=== PATIENT | male | born 1935 | race Caucasian/White ===

== ENCOUNTER 2018-05-25 01:17 | Emergency (ER) | payer OTHER ==
[2018-05-25 01:22] VITALS: BP 164/65
== END 2018-05-25 02:43 | disposition left against medical advice (07) ==
DX: Z53.21 Procedure and treatment not carried out due to patient leaving prior to being seen by health care provider (principal)

== ENCOUNTER 2018-08-09 04:14 | Observation (INO) | payer OTHER ==
[2018-08-09] MEDS ORDERED: NS 1,000 ML IV ONE (04:21)
[2018-08-09] MEDS ORDERED: ONDANSETRON 4 MG/2 ML VIAL IVP ONE (04:21)
[2018-08-09] MEDS ORDERED: HYDROmorphONE/DILAUDID 2 MG/ML INJ IVP ONE (04:21)
--- NOTE | 2018-08-09 04:21 | EDPHY ---
H & P Stated Complaint: LUQ abd pain worst when laying down Time Seen by Provider: 08/09/18 04:21 HPI/ROS: HPI CHIEF COMPLAINT: Left upper quadrant abdominal pain HISTORY OF PRESENT ILLNESS: 82-year-old male, states he is otherwise healthy with no significant medical history does not take any daily medications, presents emergency room left upper quadrant abdominal pain. Patient reports that he has had this pain for close to a year. However this evening it has gotten worse. Describes is sharp stabbing pain left upper quadrant. Nonradiating. Patient denies any fever. Denies any chest pain or shortness of breath, denies the pain radiating up to his chest. Denies the pain radiating to his back. Pain stays locally in the left upper quadrant. It is also worse when he lays flat. No pleuritic pain. No shortness of breath. Past Medical History: Denies significant medical history Past Surgical History: Denies significant surgical history Social History: Denies drugs alcohol tobacco. Accompanied by his at bedside. Family History: Noncontributory ROS REVIEW OF SYSTEMS: 10 Systems were reviewed and negative with the exception of the elements mentioned in the history of present illness. Exam Constitutional triage nursing summary reviewed, vital signs reviewed, awake/ alert. Eyes normal conjunctivae and sclera, EOMI, PERRLA. HENT normal inspection, atraumatic, moist mucus membranes, no epistaxis, neck supple/ no meningismus, no raccoon eyes. Respiratory clear to auscultation bilaterally, normal breath sounds, no respiratory distress, no wheezing. Cardiovascular rate normal, regular rhythm, no murmur, no edema, distal pulses normal. Gastrointestinal mild tender palpation left upper quadrant, no rebound, no guarding, normal bowel sounds, no distension, no pulsatile mass. Genitourinary no CVA tenderness. Musculoskeletal no midline vertebral tenderness, full range of motion, no calf swelling, no tenderness of extremities, no meningismus, good pulses, neurovascularly intact. Skin pink, warm, & dry, no rash, skin atraumatic. Neurologic awake, alert and oriented x 3, AAOx3, moves all 4 extremities equally, motor intact, sensory intact, CN II-XII intact, normal cerebellar, normal vision, normal speech. Psychiatric normal mood/affect. Heme/Lymph/Immune no lymphadenopathy. Differential diagnosis includes but is not limited to and in no particular order : Bowel obstruction, appendicitis, gallbladder disease, diverticulitis, colitis , enteritis, perforated viscus, gastritis, GERD, esophagitis, urinary tract infection, pyelonephritis, kidney stones Medical Decision Making: Plan for this patient IV establishment IV fluid bolus , IV Dilaudid 0.5 mg for pain control, IV Zofran 4 mg for nausea, abdominal labs , CT scan abdomen pelvis with IV contrast for left upper quadrant abdominal pain. No pulsatile mass on exam. Re-evaluation: EKG interpretation by me on record in [employer] system. Impression time of EKG 4:53 a.m. Sinus rhythm rate of 65. No signs of acute ischemia. No prolonged intervals no ST elevation or ST depression. 0618: Patient's EKG is nonischemic. Patient's troponin is noted to be positive at 0.11. Given this pain in the left upper quadrant the positive troponin with a nonischemic EKG plan will be for admission to the hospital for further evaluation. CT scan abdomen pelvis with IV contrast shows constipation but no acute inflammatory process. Chest x-ray shows cardiomegaly but no evidence of failure. This possible left upper quadrant is gas pain or constipation. However in the setting of a positive troponin will admit him for further evaluation of this. 0627AM: Spoke with Dr. Padilla agrees to admit. Source: Patient - Personal History Current Tetanus/Diphtheria Vaccine: Yes Current Tetanus Diphtheria and Acellular Pertussis (TDAP): Yes - Medical/Surgical History Hx Asthma: Yes Hx Chronic Respiratory Disease: No Hx Diabetes: No Hx Cardiac Disease: No Hx Renal Disease: No Hx Cirrhosis: No Hx Alcoholism: No Hx HIV/AIDS: No Hx Splenectomy or Spleen Trauma: No Other PMH: denies - Social History Smoking Status: Never smoked Constitutional: Initial Vital Signs Temperature (C) 36.8 C 08/09/18 04:15 Heart Rate 82 08/09/18 04:15 Respiratory Rate 16 08/09/18 04:15 Blood Pressure 164/74 H 08/09/18 04:15 O2 Sat (%) 97 08/09/18 04:15 O2 Delivery Mode Room Air Allergies/Adverse Reactions: Penicillins Allergy (Verified 08/09/18 07:58) Rash Home Medications: Medication Instructions Recorded Omeprazole 20 mg PO DAILY 08/09/18 Medical Decision Making - Diagnostics Imaging Results: Imaging Impressions Abdomen CT 08/09/18 04:21 Impression: 1. No acute abnormality within the abdomen or pelvis. 2. Constipation. 3. 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 The study was performed as an emergency on-call case and discussed by telephone with Dr. David Valle at 5:45 AM hrs. The final interpretation is concordant with the original communication. - Data Points Laboratory Results: Laboratory Results 08/09/18 04:30 08/09/18 04:30 Medications Given: Discontinued Medications Enoxaparin Sodium (Lovenox) 40 mg SC DAILY ANGELLA Stop: 02/05/19 08:59 Last Admin: 08/09/18 16:24 Dose: Not Given Hydromorphone HCl (Dilaudid) 0.5 mg IVP EDNOW ONE Stop: 08/09/18 04:22 Last Admin: 08/09/18 05:16 Dose: Not Given Sodium Chloride (Ns) 1,000 mls @ 0 mls/hr IV EDNOW ONE; Wide Open PRN Reason: Protocol Stop: 08/09/18 04:22 Last Admin: 08/09/18 04:47 Dose: 1,000 mls Sodium Chloride (Ns) 500 mls @ 1,500 mls/hr IV ONCE ONE Stop: 08/09/18 13:42 Last Admin: 08/09/18 13:34 Dose: 500 mls Ondansetron HCl (Zofran) 4 mg IVP EDNOW ONE Stop: 08/09/18 04:22 Last Admin: 08/09/18 05:16 Dose: Not Given Point of Care Test Results: Chemistry 08/09/18 05:14 POC Troponin I 0.11 ng/mL H ng/mL (0.00-0.08) Departure - Departure Disposition: [facility] Inpatient Acute Clinical Impression: Elevated troponin Constipation Qualifiers: Constipation type: other constipation type Qualified Code(s): K59.09 - Other constipation Condition: Fair
[2018-08-09 04:43] LABS: PLATELET COUNT 199 10^3/uL (150-400)
[2018-08-09] MEDS ORDERED: IOPAMIDOL (ISOVUE-300) 100 ML BTL ONE (05:09)
[2018-08-09] MEDS ORDERED: ONDANSETRON DISINTEGRATING 4 MG TAB PO PRN (06:26)
[2018-08-09] MEDS ORDERED: ACETAMINOPHEN 325 MG TAB PO PRN (06:26)
[2018-08-09] MEDS ORDERED: ONDANSETRON 4 MG/2 ML VIAL IVP PRN (06:26)
[2018-08-09 06:35] LABS: INR 1.07 (0.83-1.16); PROTIME(PATIENT) 14.1 SEC (12.0-15.0)
--- NOTE | 2018-08-09 07:09 | PDGENHP ---
History and Physical - Chief Complaint LUQ pain - History of Present Illness 82 yo M w/ no PMHx presents with LUQ pain. Patient tells me he has had mild, on and off LUQ pain for several months. Last night the pain was much more severe than usual so he came to the ED. He tells me the pain is worse when he lies flat. He denies any association to exertion. There is a pleuritic component to the pain. He denies SOB, palpitation, orthopnea, leg swelling, and any other associated symptoms. He denies recent illnesses. In the ED a CT of the abdomen was unremarkable. A troponin was checked, which was elevated at 0.1. ECG shows no signs of acute ischemia. The patient denies any cardiac history. Case was discussed with ED physician Dr. Valle; records reviewed in EMR. History Information - Allergies/Home Medication List Allergies/Adverse Reactions: Penicillins Allergy (Verified 08/09/18 04:18) Home Medications: NK [No Known Home Meds] 08/09/18 [Last Taken Unknown] I have personally reviewed and updated: family history, medical history - Past Medical History no pertinent PMH - Surgical History Additional surgical history: TURP - Family History Additional family history: Denies family hx of cardiac disease - Social History Smoking Status: Never smoked Review of Systems Review of Systems: ROS: 10pt was reviewed & negative except for what was stated in HPI & below Physical Exam Physical Exam: Temp Pulse Resp BP Pulse Ox 36.8 C 63 18 170/79 H 98 08/09/18 04:15 08/09/18 06:16 08/09/18 06:16 08/09/18 06:16 08/09/18 06:16 Constitutional: no apparent distress, appears nourished Eyes: PERRL, EOMI Ears, Nose, Mouth, Throat: moist mucous membranes, no oral mucosal ulcers Cardiovascular: regular rate and rhythym, no murmur, rub, or gallop Respiratory: no respiratory distress, no rales or rhonchi Gastrointestinal: normoactive bowel sounds, tenderness (Mild LUQ TTP) Skin: warm, normal color Musculoskeletal: full muscle strength, no muscle tenderness Neurologic: AAOx3, CN II-XII Intact Psychiatric: interacting appropriately, not anxious Lab Data & Imaging Review 08/09/18 04:30 08/09/18 04:30 WBC 5.25 10^3/uL (3.80-9.50) 08/09/18 04:30 RBC 4.19 10^6/uL (4.40-6.38) L 08/09/18 04:30 Hgb 13.7 g/dL (13.7-17.5) 08/09/18 04:30 Hct 40.1 % (40.0-51.0) 08/09/18 04:30 MCV 95.7 fL (81.5-99.8) 08/09/18 04:30 MCH 32.7 pg (27.9-34.1) 08/09/18 04:30 MCHC 34.2 g/dL (32.4-36.7) 08/09/18 04:30 RDW 13.0 % (11.5-15.2) 08/09/18 04:30 Plt Count 199 10^3/uL (150-400) 08/09/18 04:30 MPV 9.6 fL (8.7-11.7) 08/09/18 04:30 Neut % (Auto) 56.1 % (39.3-74.2) 08/09/18 04:30 Lymph % (Auto) 33.0 % (15.0-45.0) 08/09/18 04:30 Assumption % (Auto) 7.2 % (4.5-13.0) 08/09/18 04:30 Eos % (Auto) 2.9 % (0.6-7.6) 08/09/18 04:30 Baso % (Auto) 0.6 % (0.3-1.7) 08/09/18 04:30 Nucleat RBC Rel Count 0.0 % (0.0-0.2) 08/09/18 04:30 Absolute Neuts (auto) 2.95 10^3/uL (1.70-6.50) 08/09/18 04:30 Absolute Lymphs (auto) 1.73 10^3/uL (1.00-3.00) 08/09/18 04:30 Absolute Monos (auto) 0.38 10^3/uL (0.30-0.80) 08/09/18 04:30 Absolute Eos (auto) 0.15 10^3/uL (0.03-0.40) 08/09/18 04:30 Absolute Basos (auto) 0.03 10^3/uL (0.02-0.10) 08/09/18 04:30 Absolute Nucleated RBC 0.00 10^3/uL (0-0.01) 08/09/18 04:30 Immature Gran % 0.2 % (0.0-1.1) 08/09/18 04:30 Immature Gran # 0.01 10^3/uL (0.00-0.10) 08/09/18 04:30 PT 14.1 SEC (12.0-15.0) 08/09/18 04:30 INR 1.07 (0.83-1.16) 08/09/18 04:30 APTT 30.0 SEC (23.0-38.0) 08/09/18 04:30 Sodium 142 mEq/L (135-145) 08/09/18 04:30 Potassium 4.0 mEq/L (3.3-5.0) 08/09/18 04:30 Chloride 105 mEq/L (97-110) 08/09/18 04:30 Carbon Dioxide 27 mEq/l (22-31) 08/09/18 04:30 Anion Gap 10 mEq/L (8-16) 08/09/18 04:30 BUN 15 mg/dL (7-23) 08/09/18 04:30 Creatinine 0.8 mg/dL (0.7-1.3) 08/09/18 04:30 Estimated GFR > 60 08/09/18 04:30 Glucose 115 mg/dL (70-100) H 08/09/18 04:30 Calcium 9.6 mg/dL (8.5-10.4) 08/09/18 04:30 Total Bilirubin 0.6 mg/dL (0.1-1.4) 08/09/18 04:30 Conjugated Bilirubin 0.1 mg/dL (0.0-0.5) 08/09/18 04:30 Unconjugated Bilirubin 0.5 mg/dL (0.0-1.1) 08/09/18 04:30 AST 29 IU/L (17-59) 08/09/18 04:30 ALT 32 IU/L (21-72) 08/09/18 04:30 Alkaline Phosphatase 52 IU/L (38-126) 08/09/18 04:30 POC Troponin I 0.11 ng/mL (0.00-0.08) H 08/09/18 05:14 Total Protein 6.4 g/dL (6.3-8.2) 08/09/18 04:30 Albumin 3.8 g/dL (3.5-5.0) 08/09/18 04:30 Lipase 106 IU/L (23-300) 08/09/18 04:30 Imaging Review: No Acute Disease constipation ASVD SMA at origin large bladder macdade 5:45 Visualized and Interpreted EKG results: Yes EKG Interpretation: Positive for: normal sinsus rhythm Assessment & Plan Assessment: 82 yo M presents with LUQ pain and found to have elevated troponin. Plan: 1. LUQ pain - Unclear etiology; noting elevated troponin could be a sign of angina but this seems less likely noting that pain has been almost constantly present for months and has no relation to exertion. CT A/P did not show acute findings, which suggests pain could be MSK in nature. - Cardiac work-up as below - Conservative pain control with APAP for now 2. Elevated troponin - Troponin 0.11 on admission with presentation of LUQ pain. ECG (personally interpreted) without signs if ischemia. Patient denies any personal history of cardiac disease. BP elevated during my evaluation, which may be contributing. - Monitor on telemetry, trend cardia enzymes (next at 1200) - Obtain TTE to look for wall motion abnormalities - Will ask cardiology to evaluate and consider utility of further testing Diet - Regular Code - Full Ppx - LMWH Dispo - Admit under observation status
--- NOTE | 2018-08-09 08:55 | PDCARCONS ---
Cardiology Consult Reason for Consult: Elevated troponin Chief Complaint: Left upper quadrant abdominal pains Requesting Physician: Hospitalist Crew History of Present Illness: Patient is an 82 y/o male with unremarkable past medical/cardiovascular history (no HTN, HLP, DM, or CAD), who presented to the ER at [facility] with complaints of left upper quadrant abdominal pains. Symptoms, according to the patient, have been present for the past six months. When asked why present to the ER at 0400 in the morning, he stated that he couldn't get back to sleep, and the pains that he was noting were more severe (4/10). Typical pain rate is 2/10. No radiation into the shoulder, neck, or jaw. No mauri "chest pains" have been noted. No PND or orthopnea. No dizziness or lightheadedness, no fevers or chills. A back injury while moving a washing machine did radiate around from the back to the ribs, but that is improved. ECG in the ER was normal (no dynamic ST/T wave changes with elevation or depression to the ST segment). CXR was grossly normal. CT of chest and abdomen was also performed with moderate atherosclerotic disease to the aorta (distally to the bifurcation) as well as to coronary arteries (RCA in particular). Patient walks five times per week with between 3-5 miles per day. No issues with chest pains or pressure noted with this activity. Stairs at home are tolerated without symptoms. Patient did report an angiogram (likely over 20 years ago) after chest pains were noted. No CAD was noted (according to the patient). Patient with smoking history (about 15-20 pack year history) over 50 years ago. Family history of "long life". At present, the patient does have an awareness of discomfort to the left upper quadrant, but would not call it "pain". Remainder of the review of systems was unremarkable less: mild "tremors" were noted with the event this morning. History Information - Allergies/Home Medication List Allergies/Adverse Reactions: Penicillins Allergy (Verified 08/09/18 07:58) Rash Home Medications: Omeprazole 20 mg PO DAILY 08/09/18 [Last Taken 08/08/18] I have personally reviewed and updated: family history, medical history, social history, surgical history Past Medical History: - Past Medical History no pertinent PMH - Surgical History Reports: no pertinent surgical hx - Family History Positive for: non-pertinent - Social History Smoking Status: Former smoker Alcohol Use: None Drug Use: None Cardiac History - Cardiac History Cardiac Risk Factors: age > 65, male Timing/Duration: Weeks Severity: moderate Severity Scale: 4 Location: other (Left upper quadrant) Activities at Onset: none Modifying Factors: improves with: other (sitting up and moving around) Associated Symptoms: denies symptoms SHWETHA Risk Evaluation age greater or equal to 65: yes greater or equal to 3 CAD risk factors: no known CAD(stenosis greater or eqaul to 50%): no ASA use in past 7 days: no severe angina(greater or equal to 2 episodes in 24hrs): no EKG ST changes greater or equal to 0.5mm: no positive cardiac marker: yes Total Score: 2 SHWETHA Score: 8.3% risk Physical Exam Physical Exam: Temp Pulse Resp BP Pulse Ox 36.8 C 58 L 16 167/80 H 98 08/09/18 07:55 08/09/18 07:55 08/09/18 07:55 08/09/18 07:55 08/09/18 07:55 Constitutional: no apparent distress, appears nourished, not in pain Eyes: PERRL, EOMI Ears, Nose, Mouth, Throat: moist mucous membranes, hearing normal, ears appear normal Cardiovascular: regular rate and rhythym, no murmur, rub, or gallop, pulses symmetric bilaterally, No JVD, No edema Peripheral Pulses: 2+: dorsalis-pedis (R), dorsalis-pedis (L) Respiratory: no respiratory distress, no rales or rhonchi, clear to auscultation Gastrointestinal: normoactive bowel sounds, soft, non-tender abdomen Skin: warm, normal color Musculoskeletal: full muscle strength, no muscle tenderness, normal joint ROM Neurologic: AAOx3, sensation intact bilaterally, CN II-XII Intact Psychiatric: interacting appropriately, not anxious, not encephalopathic Lab and Imaging 08/09/18 04:30 08/09/18 04:30 WBC 5.25 10^3/uL (3.80-9.50) 08/09/18 04:30 RBC 4.19 10^6/uL (4.40-6.38) L 08/09/18 04:30 Hgb 13.7 g/dL (13.7-17.5) 08/09/18 04:30 Hct 40.1 % (40.0-51.0) 08/09/18 04:30 MCV 95.7 fL (81.5-99.8) 08/09/18 04:30 MCH 32.7 pg (27.9-34.1) 08/09/18 04:30 MCHC 34.2 g/dL (32.4-36.7) 08/09/18 04:30 RDW 13.0 % (11.5-15.2) 08/09/18 04:30 Plt Count 199 10^3/uL (150-400) 08/09/18 04:30 MPV 9.6 fL (8.7-11.7) 08/09/18 04:30 Neut % (Auto) 56.1 % (39.3-74.2) 08/09/18 04:30 Lymph % (Auto) 33.0 % (15.0-45.0) 08/09/18 04:30 Mcclain % (Auto) 7.2 % (4.5-13.0) 08/09/18 04:30 Eos % (Auto) 2.9 % (0.6-7.6) 08/09/18 04:30 Baso % (Auto) 0.6 % (0.3-1.7) 08/09/18 04:30 Nucleat RBC Rel Count 0.0 % (0.0-0.2) 08/09/18 04:30 Absolute Neuts (auto) 2.95 10^3/uL (1.70-6.50) 08/09/18 04:30 Absolute Lymphs (auto) 1.73 10^3/uL (1.00-3.00) 08/09/18 04:30 Absolute Monos (auto) 0.38 10^3/uL (0.30-0.80) 08/09/18 04:30 Absolute Eos (auto) 0.15 10^3/uL (0.03-0.40) 08/09/18 04:30 Absolute Basos (auto) 0.03 10^3/uL (0.02-0.10) 08/09/18 04:30 Absolute Nucleated RBC 0.00 10^3/uL (0-0.01) 08/09/18 04:30 Immature Gran % 0.2 % (0.0-1.1) 08/09/18 04:30 Immature Gran # 0.01 10^3/uL (0.00-0.10) 08/09/18 04:30 PT 14.1 SEC (12.0-15.0) 08/09/18 04:30 INR 1.07 (0.83-1.16) 08/09/18 04:30 APTT 30.0 SEC (23.0-38.0) 08/09/18 04:30 Sodium 142 mEq/L (135-145) 08/09/18 04:30 Potassium 4.0 mEq/L (3.3-5.0) 08/09/18 04:30 Chloride 105 mEq/L (97-110) 08/09/18 04:30 Carbon Dioxide 27 mEq/l (22-31) 08/09/18 04:30 Anion Gap 10 mEq/L (8-16) 08/09/18 04:30 BUN 15 mg/dL (7-23) 08/09/18 04:30 Creatinine 0.8 mg/dL (0.7-1.3) 08/09/18 04:30 Estimated GFR > 60 08/09/18 04:30 Glucose 115 mg/dL (70-100) H 08/09/18 04:30 Calcium 9.6 mg/dL (8.5-10.4) 08/09/18 04:30 Total Bilirubin 0.6 mg/dL (0.1-1.4) 08/09/18 04:30 Conjugated Bilirubin 0.1 mg/dL (0.0-0.5) 08/09/18 04:30 Unconjugated Bilirubin 0.5 mg/dL (0.0-1.1) 08/09/18 04:30 AST 29 IU/L (17-59) 08/09/18 04:30 ALT 32 IU/L (21-72) 08/09/18 04:30 Alkaline Phosphatase 52 IU/L (38-126) 08/09/18 04:30 POC Troponin I 0.11 ng/mL (0.00-0.08) H 08/09/18 05:14 Total Protein 6.4 g/dL (6.3-8.2) 08/09/18 04:30 Albumin 3.8 g/dL (3.5-5.0) 08/09/18 04:30 Lipase 106 IU/L (23-300) 08/09/18 04:30 Visualized and Interpreted Chest x-ray results: Yes Chest X-ray Interpretation: no infiltrate, normal, normal heart size Visualized and Interpreted EKG results: Yes EKG Interpretation: Positive for: normal sinsus rhythm Telemetry: Normal sinus rhythm A/P Assessment: Patient is an 82 y/o male with no prior cardiac history on no medications, who presents to [facility] ER with complaints of left upper quadrant pains. Symptoms have been noted for several months, but early this morning, more severe (02/18). In the ER, ECG was performed (unremarkable), CXR (normal), and CT scan (no gross pathology, but there is a moderate degree of PVD (aorta) and some CAD noted ( likely to the RCA). At present, the patient has "presence" of discomfort to the left upper quadrant. was at bedside this morning. Plan: (1) Would start the patient on low dose ASA (81 mg per day) (2) A second troponin should be performed - if further elevation is noted, would consider echocardiography for further assessment of systolic function and wall motion (this may have been ordered already) - if normalization has been noted, would consider discharge to home for outpatient work up with (3) Patient is a higher CV risk based on age and sex alone and stress testing not likely to assist with risk stratification - if abnormal, not a surprise (>>10% ASCVD risk) - if normal, we still have some degree of concern given ASCVD score (>>10%) (4) Medical therapy should be started to better treat the blood pressure elevation that has been noted - the patient claims that the blood pressures at home are typically 120's systolic - we do not have a cholesterol assessment, and prior to beginning therapy on statins, would recommend a baseline LFT/FLP - the patient has CAD and PVD from the CT scan, but this testing does not assist with determination of the severity of stenosis (5) The patient is typically followed by [facility] in the outpatient setting (6) There is the option for angiography, but (a) the patient is on NO medical therapy, (b) currently, the patient has no active symptoms, and (c) ECG without dynamic ST/T wave changes. Thank you for this consultation.
[2018-08-09] MEDS ORDERED: ENOXAPARIN 40 MG/0.4 ML SYR SC SCH (09:00)
--- NOTE | 2018-08-09 13:19 | ECHO ---
[email or web address] [address] [address] Main: [phone] Fax: [email or web address] Echocardiogram Name: ELAINE WASHINGTON MR#: [id number] Study Date: 08/09/2018 Study Time: 12:09 PM Date of : 1935 Age: 82 year(s) Height: 170.2 cm (67 in.) Weight: 70.31 kg (155 lb.) BSA: 1.81 m2 Gender: Male Examination: Echo Indication: Elevated trop Image Quality: Adequate Contrast: Requested by: Pineda Tejeda BP: 126 mmHg/66 mmHg Heart Rate: Rhythm: Indication: Elevated trop Procedure Staff Car Examiner: Chiquis Rodriguez RDCS Reading Physician: Sara Aguirre MD Requesting Provider: Demi Gupta Conclusions: Normal size left ventricle. Mild concentric LV hypertrophy. Normal global systolic LV function. The ejection fraction is visually estimated to be 65 %. No regional wall motion abnormality. Mildly dilated right ventricle. Normal RV function. The left atrium is normal in size. The right atrium is mildly dilated. Mild mitral valve regurgitation is present. Mild tricuspid regurgitation is present. The pulmonary artery pressure is mildly increased. No pericardial effusion. There is no previous echocardiogram for comparison. Measurements: Chambers Valvular Assessment AV/MV Valvular Assessment TV/PV Normal Normal Normal Name Value Range Name Value Range Name Value Range Ao Mercedes (2D): 3.2 cm (1.4 cm-2.6 AV Vmax: 1.25 m/s (1 m/s-1.7 TR Vmax: 2.95 mm/s ( - ) cm) m/s) TR PGmax: 35 mmHg ( - ) IVSd (2D): 1.2 cm (0.6 cm-1.1 AV maxP mmHg ( - ) syst. PAP: 40 mmHg ( - ) cm) AV meanP mmHg ( - ) PV Vmax: 1.14 m/s (0.6 m/s-0.9 LVDd (2D): 3.8 cm (4.2 cm-5.9 NA (VTI): 2.0 cm ( - ) m/s) cm) MV E Vmax: 0.76 m/s ( - ) PV PGmax: 5 mmHg ( - ) LVDs (2D): 2.6 cm (2.1 cm-4 MV A Vmax: 0.80 m/s ( - ) cm) MV E/A: 0.95 ( - ) LVPWd (2D): 1.2 cm (0.6 cm-1 cm) MV PHT: 0.097 s ( - ) LVOTd 2.1 cm 2.1 cm mm MVA (PHT): 2.3 s ( - ) Patient: ELAINE WASHINGTON Study Date: 08/09/2018 Page 1 of 2 12:09 PM LVEF (BP): 73 % (>=55 %) Visual EF: 65 % RVDd(2D): 2.8 cm (1.9 cm-3.8 cmmm) Continued Measurements: Chambers Valvular Assessment AV/MV Valvular Assessment TV/PV Name Value Name Value Name Value LADs: 4.0 cm MV DecTime: 338 m/s CVP (est.): 5 mmHg LADs Lon.1 cm MV E' Septal: 0.08 m/s LA Area: 17.6 cm2 MV E/E' Septal: 9.70 LA Volume: 51 ml MV E/E' Lateral: 8.90 LA Volume Index: 28.2 ml/m2 RA Area: 22.2 cm2 Findings: Left Ventricle: Normal size left ventricle. Mild concentric LV hypertrophy. Normal global systolic LV function. The ejection fraction is visually estimated to be 65 %. No regional wall motion abnormality. Right Ventricle: Mildly dilated right ventricle. Normal RV function. Left Atrium: The left atrium is normal in size. Right Atrium: The right atrium is mildly dilated. Mitral Valve: The mitral valve is normal in appearance and function. Mild mitral valve regurgitation is present. No mitral stenosis is present. Aortic Valve: The aortic valve is tri-leaflet. Aortic sclerosis is present. There is no significant aortic valve regurgitation. No aortic valve stenosis is present. Tricuspid Valve: The tricuspid valve appears normal. Mild tricuspid regurgitation is present. The pulmonary artery pressure is mildly increased. Pulmonic Valve: The pulmonic valve is normal in appearance and function. There is no pulmonic regurgitation seen. Aorta: The aorta is normal. Normal size aortic root measuring 3.2 cm. IVC: Subcostal technically difficult. Pericardium: No pericardial effusion. No pleural effusion. (No Signature Object) Patient: ELAINE WASHINGTON Study Date: 08/09/2018 Page 2 of 2 12:09 PM [id number]
[2018-08-09] MEDS ORDERED: NS 500 ML IV ONE (13:23)
[2018-08-09] MEDS ORDERED: IOPAMIDOL (ISOVUE 370) 100 ML BTL IV ONE (14:09)
[2018-08-09 15:20] VITALS: BP 151/78
--- NOTE | 2018-08-09 15:36 | ASDISCHSUM ---
Discharge Information Plan Status:Home with No Needs Medically Cleared to Leave:08/09/2018 Discharge Date:08/09/2018 CM D/C Disposition:Home, Routine, Self-Care ADT D/C Disposition:Home, Routine, Self-Care Projected Discharge Date:08/09/2018 Transportation at D/C: Discharge Delay Reason: Follow-Up Date:08/09/2018 Discharge Slot: Final Diagnosis: Placement Information Patient Contact Information Contact Name:DAVID Relationship: Address:[address] Work Phone: City:[place] [facility] Phone: State/Zip Code:[place] [address] Email: Financial Information Financial Class:Medicare Advantage Plans Primary Plan Desc:[employer] ADVANTAGE OUTPAT Primary Plan Number:[id number] Secondary Plan Desc: Secondary Plan Number: Assessment Information Intervention Information Intervention Type:*JOHN-Signed Date of Service:08/09/2018 03:35 PM Patient Type:Observation Staff Member:YOLA Vuong, Libra Hours: Discipline: Severity: Comment:
--- NOTE | 2018-08-09 20:35 | GDS ---
DIAGNOSES: 1. Left upper quadrant pain and left lower rib pain. 2. Possible reflux on Prilosec. 3. Calcified calcifications noted on coronary arteries. Patient asymptomatic. PROCEDURES DONE: Abdominal CT scan showing no acute abnormality within the abdomen or pelvis. Chest and thoracic CT angiogram showing no pulmonary embolism. Some calcifications in the coronary arteri es. Echocardiogram showing slightly elevated right ventricular pressures but otherwise normal. CONSULTATIONS: Cardiology. HOSPITAL COURSE: The patient is an 82-year-old man who is healthy, who comes in with several months of left upper quadrant pain. He is a [facility] patient and has been followed in the outpatient setting. He said the pain is more pronounced at night when he is prone and sometimes when he is sitting, sta nding, or exercising makes the pain get better. He is quite active, walks 3-5 miles daily. Can go u p and down stairs without any symptoms. He came in today after waking up from sleep around 3 or 4 in the morning with slightly increased pain from a 1-4. On admission his troponin was indeterminate, s o he was admitted and monitored overnight. He had no abnormalities on telemetry. Followup troponin was negative. He had the above procedures done and as well as an EKG, which showed no ischemia. Aft er discussing the patient with Cardiology, it was felt that he did not need any further stress testin g prior to discharge and he can follow up with [facility]. Given the fact that he is quite active with n o symptoms, it is felt that this pain while prone is likely noncardiac in origin. Of note, he does h ave a compression fracture on T11 that is mild and certainly the pain he is experiencing could be ref erred pain from the fracture and will likely take time for resolution. CONDITION ON DISCHARGE: Good. VITAL SIGNS: Stable. He is essentially pain free. DISCHARGE MEDICATIONS: Please see discharge medication form. He will continue his Prilosec daily in the morning for 2 weeks to see if it helps his pain. If not, then he will discontinue it. FOLLOW UP INSTRUCTIONS: He should follow up with his primary care provider, Dr. Krystal Ocampo, at [facility]. Copy requested to: Dr. Krystal Ocampo [facility] /[id number]/MODL
[2018-08-10] MEDS ORDERED: PANTOPRAZOLE SODIUM 40 MG TAB PO SCH (09:00)
--- NOTE | 2018-08-11 15:21 | CPEKG ---
Test Reason : OPEN Blood Pressure : / mmHG Vent. Rate : 065 BPM Atrial Rate : 065 BPM P-R Int : 217 ms QRS Dur : 090 ms QT Int : 447 ms P-R-T Axes : 083 049 047 degrees QTc Int : 465 ms Sinus rhythm Borderline prolonged NM interval Confirmed by Rochelle Kennedy ([id number]) on 08/11/2018 3:20:54 PM Referred By: Confirmed By:Rochelle Kennedy
== END 2018-08-09 17:08 | disposition home or self-care (01) ==
LOC: F2W 08:09
PROVIDERS: ADMIT Student in an Organized Health Care Education/Training Program; ATTEND Student in an Organized Health Care Education/Training Program
DX: R07.81 Pleurodynia (principal); E86.9 Volume depletion, unspecified; I25.10 Atherosclerotic heart disease of native coronary artery without angina pectoris; M48.54XA Collapsed vertebra, not elsewhere classified, thoracic region, initial encounter for fracture; K59.00 Constipation, unspecified; I70.0 Atherosclerosis of aorta
CPT/HCPCS: 71045; 71275; 74177; 93005; 93306; G0378; J1170; Q9967; 84484-PO; J2405